=== PATIENT | female | born 1975 | race Two or more races ===

== ENCOUNTER 2022-07-16 03:11 | Emergency (ER) | payer OTHER ==
[~2022-07-16] VITALS: Ht 152.4 cm; Wt 81.0 kg
[2022-07-16] MEDS ORDERED: LORazepam 2 MG TABLET PO ONE (03:45)
[2022-07-16 04:29] VITALS: BP 155/111
[2022-07-16] MEDS ORDERED: LORA-1000 PO (04:43)
== END 2022-07-16 05:47 | disposition home or self-care (01) ==
LOC: EMS 03:13
DX: F41.9 Anxiety disorder, unspecified (principal); F31.9 Bipolar disorder, unspecified; Z91.040 Latex allergy status; Z90.710 Acquired absence of both cervix and uterus; Z88.0 Allergy status to penicillin
CPT/HCPCS: 71045; 93005; 99283

== ENCOUNTER 2022-10-12 23:19 | Emergency (ER) | payer OTHER ==
[~2022-10-12] VITALS: Ht 152.4 cm; Wt 81.0 kg
[~2022-10-12 23:19] MED LIST: LORA-1000 PO
[2022-10-12] MEDS ORDERED: DOPamine HCL/D5W 400 MG/250 ML IV BAG IV ONE (23:20)
[2022-10-12] MEDS ORDERED: EPINEPHrine 1:10,000 [1 MG/10 ML] SYRINGE IVP ONE (23:20)
[2022-10-12] MEDS ORDERED: SODIUM BICARBONATE 50 MEQ/50 ML VIAL IVP ONE (23:20)
[2022-10-12] MEDS ORDERED: 0.9% SODIUM CHLORIDE 10 ML SYRINGE IVP ONE (23:20)
[2022-10-13] MEDS ORDERED: FLUMAZENIL 0.1 MG/ML 5 ML VIAL IVP ONE (00:15)
[2022-10-13] MEDS ORDERED: NOREPINEPHRINE 8 MG/D5%-WATER 250 ML IV PRN (00:15)
[2022-10-13 00:21] VITALS: BP 110/46
[2022-10-13] MEDS ORDERED: EPINEPHrine 2 MG in DEXTROSE 5%-WATER 248 ML IV PRN (00:30)
== END 2022-10-13 04:41 ==
LOC: EMS 23:19
DX: I46.9 Cardiac arrest, cause unspecified (principal); F41.9 Anxiety disorder, unspecified; F31.9 Bipolar disorder, unspecified; Z90.710 Acquired absence of both cervix and uterus; Z88.0 Allergy status to penicillin; Z91.040 Latex allergy status
CPT/HCPCS: 92950; 31500; 99291; 96365; 96375; J1265; J0171; J3490 ×2; X7700; Q9967